=== PATIENT | female | born 1950 | race Caucasian/White ===

== ENCOUNTER 2017-10-22 12:21 | Day surgery (SDC) | payer MEDICARE, BC ==
[~2017-10-22 12:21] MED LIST: RINGER'S SOLUTION,LACTATED 1,000 ML IV PRN
[2017-10-22 15:48] VITALS: BP 171/75
--- NOTE | 2017-10-22 20:39 | OR ---
Operative Report - Dictated Report Narrative: Operative Report Date of operation: 10/22/2017 Preoperative diagnosis: Anemia. 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 Large amount of retained stool precluding colon exam proximal to 70 cm Operation: Upper GI endoscopy. Colonoscopy to 70 cm Surgeon: Dr Venegas Anesthesia: LYNDSAY FUENTES CRNA Indications for procedure: The patient is a 67-year-old female referred by Dr. Carlos. 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 She has generalized abdominal pain and anemia. She has had no previous dedicated colon studies Findings: Findings compatible with previous Matt-en-Y gastric bypass (no visible pathology). Large amount of retained stool precluding exam proximal to 70 cm (normal exam to that level) Narrative of procedure: The patient was identified preoperatively, and prior to the administration of anesthetic a multidisciplinary timeout was observed EGD: With the patient in the recumbent position, a bite-block was placed, intravenous sedation was administered, and the patient's eyes covered with a towel. The flexible fiberoptic gastroscope was advanced into the posterior pharynx which appeared normal. The supraglottic larynx appeared normal. The cords appeared normal, moved well, and opposed in the midline. The scope was advanced under direct vision into the proximal esophagus which appeared normal. The esophagus appeared freely distensible with normal mucosa. The esophageal mucosa appeared normal down to the gastroesophageal junction which was sharp and noninflamed. The GE junction appeared normally distensible. The scope was advanced into the gastric pouch which was insufflated with air. The gastric pouch appeared normal. Two small bowel limbs were identified. The short/blind limb was inspected and appeared normal. The efferent limb was intubated to at least 30cm and appeared normal. The scope was withdrawn into the gastric pouch with confirmation of normal findings. The insufflated air was removed, the scope withdrawn from the patient, and this portion of the procedure terminated. COLONOSCOPY: The patient was then placed in the left lateral position, and the perineum was inspected. There was no evidence of pilonidal disease or skin breakdown. The external appearance of the anus was normal. Sphincter tone was good. The flexible fiberoptic colonoscope was inserted into the rectum which was insufflated with air. The rectal mucosa and submucosal vascular pattern appeared normal, the prep was seen to be poor with residual formed stool. The scope was advanced through the sigmoid colon, which contained more formed stool. The scope was advanced to approximately 70 cm where there was a large amount of liquid and solid stool precluding any useful visualization of the mucosa. Accordingly the scope was then slowly withdrawn in a circular fashion. No fer colon lesions or diverticulosis was appreciated however there was a large amount of stool present. The scope was gradually withdrawn to the level of the rectum. As much insufflated air as possible was removed. The scope was withdrawn from the patient and the procedure terminated. The patient tolerated the anesthetic and procedure well without complication and was transferred back to the ambulatory surgery area awake and in stable condition. The patient remained stable throughout a period of postoperative observation. She denied abdominal discomfort, was able to tolerate clear liquids, and was up without assistance. I shared the operative findings with the patient and she was given copies of the photographs which appear in the medical record. I explained that because the proximal colon prep was incomplete she would need to undergo additional prep and return for an exam tomorrow, to which she agreed She was discharged home with instructions not to engage in hazardous activity today and continue a clear liquid diet. She is to continue those medications as listed in the history and physical exam. She was given a signed out sample Suprep prep kit with specific written instructions. She will return at 7 AM on 10/23/2017 for repeat colon exam. Reviewed and electronically signed
== END 2017-10-22 12:22 | disposition home or self-care (01) ==
LOC: AMB 12:21
PROVIDERS: ATTEND Surgery
PROC: 0DJ08ZZ Inspection of Upper Intestinal Tract, Via Natural or Artificial Opening Endoscopic (ICD-10-PCS; principal; 2017-10-22 13:40)
PROC: 0DJD8ZZ Inspection of Lower Intestinal Tract, Via Natural or Artificial Opening Endoscopic (ICD-10-PCS; 2017-10-22 13:40)
DX: Z12.11 Encounter for screening for malignant neoplasm of colon (principal); I10 Essential (primary) hypertension; K21.9 Gastro-esophageal reflux disease without esophagitis; D50.9 Iron deficiency anemia, unspecified; M81.0 Age-related osteoporosis without current pathological fracture; M19.90 Unspecified osteoarthritis, unspecified site; G35 Multiple sclerosis; F31.89 Other bipolar disorder; G40.909 Epilepsy, unspecified, not intractable, without status epilepticus; E66.9 Obesity, unspecified; Z68.31 Body mass index [BMI] 31.0-31.9, adult; F17.200 Nicotine dependence, unspecified, uncomplicated; Z98.84 Bariatric surgery status
CPT/HCPCS: 43235; G0104

== ENCOUNTER 2017-10-23 06:41 | Day surgery (SDC) | payer MEDICARE, BC ==
[2017-10-23] MEDS ORDERED: RINGER'S SOLUTION,LACTATED 1,000 ML IV ONE ×2 (07:28→09:10)
[2017-10-23] MEDS ORDERED: RINGER'S SOLUTION,LACTATED 1,000 ML IV PRN (09:20)
[2017-10-23 10:16] VITALS: BP 175/80
--- NOTE | 2017-10-23 11:14 | OR ---
Operative Report - Dictated Report Narrative: OPERATIVE REPORT DATE OF OPERATION: 10/23/2017 PREOPERATIVE DIAGNOSIS: No prior dedicated cold studies. Incomplete colonoscopy yesterday due to poor prep POSTOPERATIVE DIAGNOSIS: Normal colonoscopy OPERATION: Colonoscopy SURGEON: Melody Venegas MD ANESTHESIA: LYNDSAY Rogers CRNA INDICATIONS FOR PROCEDURE: The patient is a 67-year-old female with anemia. She underwent upper GI endoscopy and attempted colonoscopy yesterday. Her upper endoscopy revealed changes compatible with her Matt-en-Y gastric bypass with no pathology. Her colon exam was only completed to 70 cm due to growth solid stool and incomplete prep. She has used another Suprep prep kit with good results and is brought for repeat colon exam. FINDINGS: Normal colonoscopy to the cecum (no pathologic findings on upper or lower GI endoscopy to account for her anemia) NARRATIVE OF PROCEDURE: The patient was identified in the holding area, and prior to the administration of anesthetic, a multidisciplinary timeout was observed. With the patient in the left lateral position and after the administration of intravenous sedation, the perineum was inspected. There was no evidence of pilonidal disease or skin breakdown. The external appearance of the anus was normal. Sphincter tone was good. The flexible fiberoptic colonoscope was inserted into the rectum which was insufflated with air. The rectal mucosa and submucosal vascular pattern appeared normal, the prep was seen to be complete. The scope was advanced through the sigmoid colon, up the descending colon, and around the splenic flexure where the triangular haustral architecture of the transverse colon was seen. The scope was advanced across the transverse colon, around the hepatic flexure to the cecum, where the confluence of tenia and the ileocecal valve were identified. The mucosa at this level appeared normal. The scope was then slowly withdrawn in a circular fashion so that all aspects of colonic mucosa were inspected. The colon was slightly redundant but normal in caliber. The haustral architecture appeared well preserved throughout with no evidence of external compression. The mucosa and submucosal vascular pattern appeared normal, specifically there was no gross evidence to suggest colitis or inflammatory bowel disease and no AV malformations were seen. No fer diverticulosis was demonstrated. No polyps were encountered. The scope was gradually withdrawn to the level of the rectum. As much insufflated air as possible was removed. The scope was withdrawn from the patient and the procedure terminated. The patient tolerated the anesthetic and procedure well without complication and was transferred back to the ambulatory surgery area awake and in stable condition. The patient remained stable throughout a period of postoperative observation. She denied abdominal discomfort, was able to tolerate by mouth intake, and was up without assistance. I shared the operative findings with the patient and she was given copies of the photographs which appear in the medical record. She was discharged home with instructions not to engage in hazardous activity today , but may resume normal activity tomorrow, and advance diet as tolerated. She is to continue those medications as listed in the history and physical exam. RECOMMENDATION: Colon surveillance in 10 years depending upon findings and symptoms
== END 2017-10-23 06:42 | disposition home or self-care (01) ==
LOC: AMB 06:41
PROVIDERS: ATTEND Surgery
PROC: 0DJD8ZZ Inspection of Lower Intestinal Tract, Via Natural or Artificial Opening Endoscopic (ICD-10-PCS; principal; 2017-10-23 08:00)
DX: Z12.11 Encounter for screening for malignant neoplasm of colon (principal); I10 Essential (primary) hypertension; K21.9 Gastro-esophageal reflux disease without esophagitis; M79.7 Fibromyalgia; D50.9 Iron deficiency anemia, unspecified; M81.0 Age-related osteoporosis without current pathological fracture; M19.90 Unspecified osteoarthritis, unspecified site; G35 Multiple sclerosis; F31.89 Other bipolar disorder; E66.9 Obesity, unspecified; Z68.31 Body mass index [BMI] 31.0-31.9, adult; F17.200 Nicotine dependence, unspecified, uncomplicated